=== PATIENT | male | born 1995 | race African-American/Black ===

== ENCOUNTER 2016-08-14 22:48 | Emergency (ER) | payer BC | END 2016-08-14 23:58 | disposition home or self-care (01) | LOC: SED 22:48 | DX: S93.401A Sprain of unspecified ligament of right ankle, initial encounter (principal); X50.1XXA Overexertion from prolonged static or awkward postures, initial encounter; Y92.009 Unspecified place in unspecified non-institutional (private) residence as the place of occurrence of the external cause | CPT/HCPCS: 29405; 99283 ==